=== PATIENT | female | born 2005 | race African-American/Black ===

== ENCOUNTER 2024-12-06 17:40 | Emergency (ER) | payer MEDICAID ==
[~2024-12-06] VITALS: Ht 162.6 cm; Wt 50.0 kg
[~2024-12-06 17:40] MED LIST: ACET-2128 PO; IBUP-2077 PO
[2024-12-06 17:44] VITALS: BP 124/76; TEMP 36.9; O2SAT 100
[2024-12-06 17:56] VITALS: PULSE 86; RESP 18; O2SAT 99
== END 2024-12-06 20:13 | disposition left against medical advice (07) ==
LOC: ER 17:40
DX: R50.9 Fever, unspecified (principal); Z53.21 Procedure and treatment not carried out due to patient leaving prior to being seen by health care provider